=== PATIENT | female | born 1970 | race Caucasian/White ===

== ENCOUNTER → 2016-09-04 | Outpatient (CLI) | payer OTHER | LOC: FIMAGING 16:28 | DX: Z08 Encounter for follow-up examination after completed treatment for malignant neoplasm (principal); N83.9 Noninflammatory disorder of ovary, fallopian tube and broad ligament, unspecified; N94.6 Dysmenorrhea, unspecified; Z85.43 Personal history of malignant neoplasm of ovary; Z90.721 Acquired absence of ovaries, unilateral ==